=== PATIENT | female | born 1965 | race Hispanic/Latino ===

== ENCOUNTER → 2020-12-16 | Day surgery (SDC) | payer OTHER ==
[~2020-12-16] MED LIST: ACETAMINOPHEN 1000 MG/100 ML 100 ML IV ONE; EPINEPHRINE HCL 1:1000 1ML 1 MG/ML AMP ONE; LIDOCAINE 1% W/EPINEPHRINE 20 ML VIAL ONE; LIDOCAINE HCL (LTA) 4 ML SOLN ONE; LINZESS72 MCG PO; MORPHINE SULFATE INJ 4 MG/ML INJ 1ML ONE; PROAIR DIGIHAL90 MCG INH; PROTONIX20 MG PO; SINGULAIR10 MG PO
[2020-12-16 09:45] VITALS: BP 101/69
== END | disposition home or self-care (01) ==
LOC: OR 05:46
PROVIDERS: ATTEND Otolaryngology Otolaryngology/Facial Plastic Surgery
DX: J32.2 Chronic ethmoidal sinusitis (principal); J34.2 Deviated nasal septum; J34.89 Other specified disorders of nose and nasal sinuses; J45.909 Unspecified asthma, uncomplicated; N20.0 Calculus of kidney; I34.1 Nonrheumatic mitral (valve) prolapse; K21.9 Gastro-esophageal reflux disease without esophagitis
CPT/HCPCS: 30520; 31254; 88305; 93005; J0131; J0171; J2270; 88304